=== PATIENT | male | born 1955 | race Caucasian/White ===

== ENCOUNTER 2019-05-29 00:27 | Inpatient (IN) | payer MEDICARE, OTHER ==
[2019-05-28 16:02] LABS: INR 0.92
[~2019-05-29] VITALS: Ht 177.8 cm; Wt 88.5 kg
[2019-05-29] VITALS (14 sets, daily range): BP systolic 96–159; BP diastolic 61–95
[~2019-05-29 00:27] MED LIST: AMLO-125 PO; ESOM40CA42 PO; LISI-374 PO; MELA1TAB9 PO; ROPI0.5T25 PO; SERT-181 PO; TAMS0.4C25 PO; TRAM-420 PO
[2019-05-29] MEDS ORDERED: ceFAZolin(*) 2GM/D5W 50ML 50 ML IVPB ONE (11:00)
[2019-05-29] MEDS ORDERED: PREGABALIN 150 MG CAPSULE PO ONE (11:00)
[2019-05-29] MEDS ORDERED: LIDOCAINE/SOD BICARB 8.4% SYR ID ONE (11:00)
[2019-05-29] MEDS ORDERED: VANCOMYCIN(*) 1 GM VIAL 1.25 GM in NS(*) 0.9% 250 ML BAG 250 ML IVPB ONE (11:00)
[2019-05-29] MEDS ORDERED: TRANEXAMIC AC 1000 MG/10ML SDV 1,000 MG in DEXTROSE 5% 50 ML BAG 50 ML IV ONE (11:00)
[2019-05-29] MEDS ORDERED: ACETAMINOPHEN 500 MG TAB PO ONE (11:00)
[2019-05-29] MEDS ORDERED: ROPIVACAINE/EPI/CLONIDINE/KET 50 ML SYRINGE INJ ONE (11:00)
[2019-05-29] MEDS ORDERED: NORMOSOL R SOLN(*) 1000 ML BAG 1,000 ML IV PRN (11:00)
[2019-05-29] MEDS ORDERED: MIDAZOLAM 2 MG/2 ML VIAL IVP PRN (11:00)
[2019-05-29] MEDS ORDERED: CELECOXIB 200 MG CAP PO ONE (11:00)
[2019-05-29] MEDS ORDERED: PROPOFOL EMUL(*) 10MG/ML 20 ML 20 ML ONE (12:47)
[2019-05-29] MEDS ORDERED: ONDANSETRON 4 MG/2 ML VIAL ONE (12:47)
[2019-05-29] MEDS ORDERED: fentaNYL CITR 250 MCG/5 ML AMP ONE (12:47)
[2019-05-29] MEDS ORDERED: SUGAMMADEX SOD 200 MG/2 ML SDV ONE (12:47)
[2019-05-29] MEDS ORDERED: LIDOCAINE MPF 1% 5 ML VIAL ONE (12:47)
[2019-05-29] MEDS ORDERED: DEXAMETHASONE SOD 4 MG/ML VIAL ONE (12:47)
[2019-05-29] MEDS ORDERED: KETAMINE HCL-NS 50 MG/5 ML SYR ONE (12:54)
[2019-05-29] MEDS ORDERED: HYDROmorphone HCL 2 MG/ML SDV ONE ×2 (14:06→16:22)
[2019-05-29] MEDS ORDERED: GLYCOPYRROLATE 0.2MG/ML 1 ML INJ ONE (14:07)
[2019-05-29] MEDS ORDERED: fentaNYL CITR 100 MCG/2 ML AMP ONE (15:52)
[2019-05-29] MEDS ORDERED: PROMETHAZINE 25 MG/ML 1 ML AMP IVP PRN (16:15)
[2019-05-29] MEDS ORDERED: MAGNESIUM CITRATE 300 ML BTL PO PRN (16:15)
[2019-05-29] MEDS ORDERED: KCL/D5LR 20 MEQ/1000 ML PREMIX 1,000 ML IV PRN (16:15)
[2019-05-29] MEDS ORDERED: ONDANSETRON 4 MG/2 ML VIAL IVP PRN (16:15)
[2019-05-29] MEDS ORDERED: FLUSH 10 ML SYR IVP PRN (16:15)
[2019-05-29] MEDS ORDERED: NALOXONE HCL 0.4 MG/ML VIAL IVP PRN (16:15)
[2019-05-29] MEDS ORDERED: ACETAMINOPHEN 500 MG TAB PO PRN (16:15)
[2019-05-29] MEDS ORDERED: diphenhydrAMINE 25 MG CAP PO PRN (16:15)
[2019-05-29] MEDS ORDERED: MORPHINE 50 MG/50 ML PCA BAG IV PRN (16:15)
--- NOTE | 2019-05-29 16:49 | OPERATIVE REPORT 1 ---
EVENT DATE: May 29, 2019 SURGEON: Armand Caraballo MD ANESTHESIOLOGIST: Duc Murillo MD ANESTHESIA: General. BUTCHER APPRENTICE: ANGELICA Aguilera PREOPERATIVE DIAGNOSIS Left shoulder cuff tear arthropathy. POSTOPERATIVE DIAGNOSIS Left shoulder cuff tear arthropathy with no evidence of any superior or most of the posterior rotator cuff, but with some subscapularis remaining. PROCEDURE PERFORMED 1. Left reverse total shoulder arthroplasty (88759). 2. Left open biceps tenodesis (41222). ESTIMATED BLOOD LOSS 75 mL. INTRAVENOUS FLUIDS 1300 mL of crystalloid, no colloid. TOURNIQUET TIME None. SPECIMENS None. COMPLICATIONS None. IMPLANTS Delta Extend #12 stem, JAMA coated; size 2 left epiphysis, eccentric, +3 42 mm polyethylene cup; a Delta Extend cementless metaglene; four screws, two locking and two nonlocking, and an eccentric 42 mm glenosphere. DESCRIPTION OF PROCEDURE The patient was brought in to the operating room and placed on the OR table in the supine position. After obtaining adequate general anesthesia, the left upper extremity was prepped and draped in the usual sterile fashion, having placed him into the beach-chair position. A deltopectoral approach was taken, deepened through skin and subcutaneous tissue. We identified the cephalic vein and retracted it, leaving it with the deltoid. One branch of it appeared to tear during the procedure. It does not appear that that was the primary one. We did use cautery to correct this. There was no further significant bleeding, leaving the blood loss at about 75 for the whole case. We did release approximately 1 cm of the proximal aspect of the pectoralis tendon and divided the biceps. We then identified the capsular tissues still overlying the shoulder that were keeping it waterproof, but essentially there was no upper or posterior-superior rotator cuff remaining. It looked like the supraspinatus, infraspinatus, and perhaps even the superior margin of the teres minor were gone. There was some subscapularis left, but it too looked a little irregular. The subscapularis was divided, leaving a soft tissue cuff for repair. It was tagged. We then proceeded with the exposure of the humeral head. Because there was no rotator cuff, it was fairly easy to bring him up and forward. The fluid within the shoulder joint was relatively normal. We then used a drill to punch through the superior cortex and then started reaming progressively larger, getting up to 12, at which point we had good cortical contact. The deltopectoral drill hole guide was used, and we made our initial cut, placed a covering cap and then retracted it posteriorly to expose the glenoid. We started with circumferential exposure, placed additional retractors, resected the labrum along with the biceps root and the biceps tissue from where we had released it previously, and then we began to mill in by first placing a guidewire, leaving him slightly inferior and also tipped a little bit into an inferior direction. With the guidewire placed, we then milled straight in and then did additional superior reaming before trialing it. It looked like it fit well, so we started with the metaglene, placed a superior and inferior locking screw followed by an anterior and posterior nonlocking screw. I selected a 42, so we placed that, secured it in position, and continued to advance it until it would no longer turn at the screwdriver, making sure the eccentricity was inferior. We then brought the head forward and proceeded to continue preparation there, starting with the reaming guide, and then we did the standard trials, which gave us a selection for a #2, which would fit best. We milled this and then proceeded to measure for the pitch. It looked like a 10, so this was set into the trial. We impacted the trial and then did our initial trial reduction. It looked like a +3 would work fine. There was adequate follow-through wherein I pulled on the humerus and it would track without gap formation. There was impingement with maximum external rotation and abduction, but otherwise a normal abduction. In any other position, there was not much impingement at all. It seemed to be quite stable. The wound was irrigated. We injected some local anesthetic in and around the glenoid and capsule, dislocated the shoulder again, and then prepared for the final implant. After placing IrriSept, we let it sit for a bit and then washed it out. We did place our final implant, and then the +3 polyethylene trial reduced it. It once again followed well. There was no change in position, and then we irrigated a final time before closing the subscapularis in its anatomic position, and then closing the deltopectoral fascia with a running suture. Finally, we used 3-0 Vicryl and 4-0 Monocryl for the skin and then placed a Prineo mesh dressing. He was awakened and transferred to the recovery room in stable condition. MAYLIN
--- NOTE | 2019-05-29 17:10 | RADIOLOGY IMAGING REPORT ---
FACILITY: [facility] PATIENT NAME: Ariel Riddle : 1955 MR: [id number] V: [id number] EXAM DATE: ORDERING PHYSICIAN: RADHA DUNBAR TECHNOLOGIST: Location: [facility] Patient: Ariel Riddle : 1955 Visit/Account:[id number] Date of Sevice: 05/29/2019 SHOULDER 1 VIEW LEFT Indication: Total left shoulder arthroplasty. Check placement Comparison: Unavailable Findings: Evidence of reverse left total shoulder arthroplasty with good anatomic alignment. There is no disloc ation. There is no periprosthetic fracture. The left acromioclavicular joint shows minimal degenerati ve change. Limited views left upper lung field are unremarkable as well. IMPRESSION: 1. Left total reverse shoulder arthroplasty with good anatomic alignment Report Dictated By: Brenden Valente MD at 05/29/2019 5:01 PM Report E-Signed By: Brenden Valente MD at 05/29/2019 5:02 PM [id number]
[2019-05-29] MEDS ORDERED: OXYC5CAP21 PO (17:20)
--- NOTE | 2019-05-29 17:44 | Hospitalist Progress Note ---
Subjective Progress Notes Subjective No cp/sob. 1350cc of crystalloid, dexamethasone, and TXA given intra-op. Physical Exam Vital Signs Date Time Temp Pulse Resp B/P (MAP) Pulse Ox O2 Delivery O2 Flow Rate FiO2 05/29/19 17:05 98.1 96 16 121/76 (91) 92 Nasal Cannula 2.0 General Appearance: Alert, Awake, No Acute Distress Cardiovascular: Regular Rate and Rhythm Respiratory: Clear to Auscultation Extremities: No Edema Result Diagram: 05/29/19 1619 Assessment and Plan Problems: (1) Status post reverse total shoulder replacement Status: Acute Assessment & Plan: No CV/pulmonary issues. Will defer VTE prophylaxis to Dr. Caraballo. (2) HTN (hypertension) Status: Chronic Assessment & Plan: Continue chronic amlodipine and lisinopril with parameters. (3) Depression Status: Chronic Assessment & Plan: Continue chronic sertraline. (4) BPH (benign prostatic hyperplasia) Status: Chronic Assessment & Plan: Continue chronic Flomax. Problem Qualifiers (1) Status post reverse total shoulder replacement: Laterality: left Qualified Codes: Z96.612 - Presence of left artificial shoulder joint FELIX CRANE MD May 29, 2019 17:44
[2019-05-29] MEDS: oxyCODON/ACET (*)5/325MG (CII) 1 TAB TAB PO PRN ×2 (18:28→23:00)
[2019-05-29] MEDS ORDERED: TAMSULOSIN HCL 0.4 MG CAP PO SCH (21:00)
[2019-05-29] MEDS ORDERED: MELATONIN 3 MG TAB PO SCH (21:00)
[2019-05-29] MEDS ORDERED: PANTOPRAZOLE SOD 40 MG TABEC PO SCH (21:00)
[2019-05-30] VITALS: BP 115/73
[2019-05-30 02:37] VITALS: BP 127/83
[2019-05-30] MEDS: oxyCODON/ACET (*)5/325MG (CII) 1 TAB TAB PO PRN ×2 (03:26→09:41)
[2019-05-30 06:31] LABS: PLATELET COUNT, AUTOMATED 203 K/uL (150-450)
[2019-05-30 06:59] VITALS: BP 117/79
--- NOTE | 2019-05-30 08:22 | NUR ---
Occupational Therapy Impression Pt alert and agreeable to OT tx. Pt reporting pain at 7/10, positioning and ice offered. Pt tolerated tx well, nursing to provide pain medication after. Reviewed precautions, ther ex per protocol, wear/fit of sling, and ADLs. All pt and spouse questions answered. SpO2 WNL on room air throughout. Skilled OT goals met. Ready for discharge when medically appropriate. Occupational Therapy Goals Patient's Goal
[2019-05-30] MEDS ORDERED: amLODIPine BESYL(*) 5 MG TAB PO SCH (09:00)
[2019-05-30] MEDS ORDERED: SERTRALINE HCL 50 MG TAB PO SCH (09:00)
[2019-05-30] MEDS ORDERED: LISINOPRIL 20 MG TAB PO SCH (09:00)
[2019-05-30] MEDS ORDERED: TAMSULOSIN HCL 0.4 MG CAP PO ONE (09:20)
--- NOTE | 2019-05-30 10:19 | Hospitalist Progress Note ---
Subjective Progress Notes Subjective He was admitted s/p shoulder replacement. He has not been able to urinate without catheter overnight. Patient Complains of: Cardiovascular: No: Chest Pain Respiratory: No: Shortness of Breath Physical Exam Vital Signs Date Time Temp Pulse Resp B/P (MAP) Pulse Ox O2 Delivery O2 Flow Rate FiO2 05/30/19 06:59 97.7 76 16 117/79 (92) 95 Nasal Cannula 0.5 Intake and Output 05/30/19 07:03 Intake Total 2572.5 ml Output Total 1325 ml Balance 1247.5 ml Intake Oral 710 ml IV Total 1862.5 ml Output Urine Total 1325 ml General Appearance: Alert, Awake, No Acute Distress, Afebrile Neuro: No Gross deficits Cardiovascular: Regular Rate and Rhythm Respiratory: No Respiratory Distress, Clear to Auscultation Psych: Alert & Oriented X3, Appropriate Mood & Affect Result Diagram: 05/30/19 0616 Assessment and Plan Problems: (1) Status post reverse total shoulder replacement Status: Acute Assessment & Plan: No CV/pulmonary issues. Will defer VTE prophylaxis to Dr. Caraballo. (2) HTN (hypertension) Status: Chronic Assessment & Plan: Continue chronic amlodipine and lisinopril with parameters. (3) Depression Status: Chronic Assessment & Plan: Continue chronic sertraline. (4) BPH (benign prostatic hyperplasia) Status: Chronic Assessment & Plan: Continue chronic Flomax. Will give an extra dose of Flomax to help with urination this morning. May have to place Alberto catheter to help with urination. Exam Sepsis Risk: No Definite Risk Problem Qualifiers (1) Status post reverse total shoulder replacement: Laterality: left Qualified Codes: Z96.612 - Presence of left artificial shoulder joint (2) HTN (hypertension): Hypertension type: essential hypertension Qualified Codes: I10 - Essential (primary) hypertension EMILIO RUIZP May 30, 2019 10:19
== END 2019-05-30 12:40 | disposition home or self-care (01) | DRG 483 ==
LOC: OR 00:27 → MED 17:00
PROVIDERS: ADMIT Orthopaedic Surgery Hand Surgery; ATTEND Orthopaedic Surgery Hand Surgery
PROC: 0LS40ZZ Reposition Left Upper Arm Tendon, Open Approach (ICD-10-PCS; 2019-05-29)
PROC: 0RRK00Z Replacement of Left Shoulder Joint with Reverse Ball and Socket Synthetic Substitute, Open Approach (ICD-10-PCS; principal; 2019-05-29 13:36)
DX: M19.012 Primary osteoarthritis, left shoulder (principal); I10 Essential (primary) hypertension; F32.9 Major depressive disorder, single episode, unspecified; N40.0 Benign prostatic hyperplasia without lower urinary tract symptoms; K21.9 Gastro-esophageal reflux disease without esophagitis; Z87.891 Personal history of nicotine dependence
CPT/HCPCS: 36415; 85014; 85018; 85025; 85610; 86850; 86900; 86901; 97165; J1100; J1170; J2001; J2250; J2405; J2704; J3010; J3370; J3490; J7050; J7060